=== PATIENT | female | born 1945 | race Caucasian/White ===

== ENCOUNTER → 2017-02-03 | Outpatient (CLI) | payer OTHER | LOC: RAD 01-30 14:25 | DX: Z12.31 Encounter for screening mammogram for malignant neoplasm of breast (principal) ==

== ENCOUNTER → 2017-02-14 | Outpatient (CLI) | payer OTHER | LOC: RAD 16:09 | DX: M47.892 Other spondylosis, cervical region (principal); R07.9 Chest pain, unspecified; R22.2 Localized swelling, mass and lump, trunk ==

== ENCOUNTER → 2017-02-20 | Outpatient (CLI) | payer OTHER | LOC: CAT 09:30 | DX: I25.10 Atherosclerotic heart disease of native coronary artery without angina pectoris (principal); R91.8 Other nonspecific abnormal finding of lung field; N85.9 Noninflammatory disorder of uterus, unspecified ==

== ENCOUNTER → 2017-03-08 | Outpatient (CLI) | payer OTHER | LOC: PET 01:26 | DX: R91.8 Other nonspecific abnormal finding of lung field (principal); R06.02 Shortness of breath ==

== ENCOUNTER → 2017-03-20 | Outpatient (CLI) | payer OTHER ==
[~2017-03-20] VITALS: Ht 157.5 cm; Wt 67.1 kg
[~2017-03-20] MED LIST: ASPIRIN325 PO; FLEXERIL PO; LISINOPRIL20 MG PO; PREMARIN0.3 MG PO; RAYOS2 MG PO; VERAPAMIL E.R240 M1 PO; ZOCOR20 MG PO
--- NOTE | ~2017-03-20 | S ---
[facility] [place] [address] SURGICAL PATH RPT PROCEDURE Name: MANUELA OLSEN [id number]: 03/20/17 Date of : 47 Discharge: Report #: [id number] Path Case #: [id number] PATHOLOGY REPORT COLLECTION DATE: 03/20/2017 RECEIVED DATE: 03/20/2017 SUBMITTING PHYS: Dr. Michael Stuart OTHER PHYS: Dr. Patel Rivas SPECIMEN(S) RECEIVED: A.Right clavicle bone biopsy * * * * * * * * * * * * FINAL DIAGNOSIS: Bone, right clavicle bone lesion, needle core biopsy: - Predominantly cartilage (60%) and the remainder showing thick-walled vessels along with inflammatory cells (please see comment). (IUV:kiya; 03/22/2017) COMMENT: Examination shows reactive cartilage along with adjacent ossification as well as thick-walled vessels with inflammatory cells. The reactive inflammatory process might represent partially sampled nodular fascitis, or hemangioma. There is no evidence of malignancy. Co-review: Dr. Praneeth Trujillo Findings of this case are discussed with Dr. Tahira Stuart at 1:30 p.m. on 03/22/2017. (IUV:kiya; 03/22/2017) PATHOLOGIST: Puja Lamb M.D. REPORT ELECTRONICALLY SIGNED BY: Puja Lamb M.D. DATE/TIME: 03/22/2017 15:58 * * * * * * * * * * * * GROSS PATHOLOGY: The specimen is received in formalin labeled "Manuela Olsen, right clavicle biopsy". Received are multiple needle cores of pale carrasquillo soft tissue mixed of blood coagulum measuring 1.2 x 0.9 x 0.1 cm in aggregate dimensions. The specimen is filtered and entirely submitted in cassette A1. (CAA; 03/21/2017) CLINICAL HISTORY: [facility] [place] [address] SURGICAL PATH RPT PROCEDURE Name: MANUELA OLSEN Room #: REG CLI [facility].#: [id number] Admission: 03/20/17 Date of : 47 Discharge: Report #: [id number] Path Case #: [id number] INITIAL CPT CODE(S): A; 99495 Professional services performed by [facility] at [address] , [place] [address] Technical services performed by [facility] at [address] [place] [address], [facility] [address] [address]. [facility] [address] [place] [address] PHONE: [phone] DIRECTOR: Cr Gonzalez M.D. * * * END OF REPORT * * *
[2017-03-20 09:38] VITALS: BP 137/63
[2017-03-20 10:11] LABS: HEMATOCRIT 41.4 % (37.0-47.0); HEMOGLOBIN 13.9 gm/dL (12.0-15.0); MCH 30.7 pg (26.0-34.0); MCHC 33.5 g/dL (28.0-37.0); MCV 91.8 fL (80.0-100.0); RBC 4.51 mil/uL (4.20-5.00); RDW 14.4 % (10.5-14.5); WBC 12.5 thou/uL (4.0-11.0)
[2017-03-20 10:24] LABS: PROTIME 10.1 Seconds (9.3-11.4)
[2017-03-20 11:10] VITALS: BP 98/50
== END | disposition home or self-care (01) ==
LOC: CAT 07:28
PROVIDERS: Radiology Vascular & Interventional Radiology
DX: M86.8X8 Other osteomyelitis, other site (principal)

== ENCOUNTER → 2017-04-20 | Outpatient (CLI) | payer OTHER ==
[2017-04-20] VITALS (10 sets, daily range): BP systolic 88–133; BP diastolic 43–61
[~2017-04-20] VITALS: Ht 162.6 cm; Wt 65.8 kg
[~2017-04-20] MED LIST changes: +TRAMADOL 50 MG50 MG PO
--- NOTE | ~2017-04-20 | S ---
[facility] [address] [place] [address] SURGICAL PATH RPT PROCEDURE Name: MANUELA OLSEN [facility] [id number] Admission: 04/20/17 Date of : 47 Discharge: Report #: [id number] Path Case #: [id number] PATHOLOGY REPORT COLLECTION DATE: 04/19/2017 RECEIVED DATE: 04/20/2017 SUBMITTING PHYS: Dr. Cornelius Cunningham OTHER PHYS: Dr. Patel Rivas SPECIMEN(S) RECEIVED: A.Right clavicle bx * * * * * * * * * * * * FINAL DIAGNOSIS: Bone, right clavicle, CT-guided needle core biopsy: - MINUTE INTACT FRAGMENT WITH A FOCUS OF METASTATIC ADENOCARCINOMA PRESENT. - Specimen predominantly (99%) comprised of reactive cartilage as well as osseous tissue. COMMENT: Examination shows reactive cartilage, focal ossified bone and inflamed tissue resembling granulation tissue with a few crushed glands. Immunohistochemical stains are performed. (Block A1) AE1/AE3: reactivity present within the tiny focus of crushed atypical cells TTF-1: reactivity present within the tiny focus of crushed atypical cells (numerous detached cells showing reactivity within the aspirated blood) These findings support the presence of metastatic adenocarcinoma in this biopsy tissue. Co-review: Dr. Lidia Nolan Findings are discussed with Ms. Ott, Dr. Brien Cunningham's nurse at 12:30 pm on 04/24/17 . (IUV:mgr; 04/21/2017) PATHOLOGIST: Puja Lamb M.D. REPORT ELECTRONICALLY SIGNED BY: Puja Lamb M.D. DATE/TIME: 04/24/2017 14:01 * * * * * * * * * * * * GROSS PATHOLOGY: The specimen is received in formalin in two containers, labeled "Manuela Olsen, CT biopsy right clavicle" are multiple hemorrhagic cores in one container and a single core in the second container. The single [address] [place] [address] SURGICAL PATH RPT PROCEDURE Name: MANUELA OLSEN Room #: REG [facility].#: [id number] Admission: 04/20/17 Date of : 47 Discharge: Report #: [id number] Path Case #: [id number] core measures 0.7 x 0.2 cm. The multiple cores measure 1.8 x 1.1 x 0.2 cm. Each have a hemorrhagic, carrasquillo-red, friable appearance. The single core is filtered and entirely submitted in cassette A1 while the remaining cores are filtered and entirely submitted in cassette A2. ([facility]; 04/20/2017) CLINICAL HISTORY: 09Not given INITIAL CPT CODE(S): A; 61148, 88935, 80866 Professional services performed by [facility] at [address] , [place] [address] Technical services performed by [facility] at [address] [place] [address], [address], [place] [address]. [facility] [address] [address] PHONE: [phone] DIRECTOR: Cr Gonzalez M.D. * * * END OF REPORT * * *
[2017-04-20 09:20] LABS: HEMATOCRIT 44.1 % (37.0-47.0); HEMOGLOBIN 14.4 gm/dL (12.0-15.0); MCHC 32.6 g/dL (28.0-37.0); RBC 4.79 mil/uL (4.20-5.00); RDW 14.7 % (10.5-14.5); WBC 13.8 thou/uL (4.0-11.0)
[2017-04-20 09:32] LABS: APTT 26.6 Seconds (24.5-32.8); PROTIME 9.7 Seconds (9.3-11.4)
== END | disposition home or self-care (01) ==
LOC: CAT 08:29
PROVIDERS: Radiology Diagnostic Radiology
DX: C79.51 Secondary malignant neoplasm of bone (principal); I10 Essential (primary) hypertension; I73.89 Other specified peripheral vascular diseases; F17.200 Nicotine dependence, unspecified, uncomplicated; Z90.710 Acquired absence of both cervix and uterus; Z88.0 Allergy status to penicillin; Z88.8 Allergy status to other drugs, medicaments and biological substances; Z79.82 Long term (current) use of aspirin; Z79.899 Other long term (current) drug therapy; Z98.890 Other specified postprocedural states

== ENCOUNTER 2017-05-10 05:23 | Day surgery (SDC) | payer OTHER ==
[~2017-05-10] VITALS: Ht 157.5 cm; Wt 66.2 kg
--- NOTE | ~2017-05-10 | P ---
[facility] [place] [address] PROCEDURE REPORT Name: MANUELA CANALES Room #: 150-7 [facility] M.R.#: [id number] Admission: 05/10/17 Attend Phys: Michael Stuart MD Discharge: Date of : 47 Report #: [id number] THIS REPORT FOR: //name// CC: Rommel Vera Allen YAHAIRA Rivas DATE OF SERVICE: 05/10/2017 PROCEDURE: Fiberoptic bronchoscopy with endobronchial ultrasound and endobronchial ultrasound-guided FNA of an 11R and 4L lymph node. INDICATION: History of a lung cancer and mediastinal staging, ASA classification class 2. PROCEDURE NOTATION: After discussing risks, benefits of planned procedure with the patient. She desired to proceed. After obtaining informed consent, she was brought to operating room 1 where she was placed on general endotracheal anesthesia by the anesthesia service. Please see their notes for further details. White light bronchoscope was passed through the endotracheal tube until the distal trachea was found. The endotracheal tube was repositioned to optimal position for endobronchial ultrasound evaluation. The airways were then surveyed. Trachea Mainstem, lobar, segmental and subsegmental bronchi were all explored bilaterally with no significant anatomic variation or significant disease. Some minor calcifications of some of the cartilaginous areas were noted. There was some minor atypical variation to the right upper lobe ____ having a trifurcation, only two significant segmental bronchi were noted. No other significant findings were noted. White light bronchoscope was removed and endobronchial ultrasound was then inserted and mediastinal lymph nodes and hilar lymph nodes were evaluated in usual fashion. Significant findings included a 6 mm 11R lymph node, which was sampled x 7 using 25-gauge needles. Rapid onsite pathology confirmed lymphatic tissue. No significant 10R or 7 lymph nodes were noted. No significant 4R lymph node noted. A 5 mm 4R lymph node was noted and this was sampled with 25-gauge needle x 3. There was a 2 mm 10L lymph node, no significant 11L lymph node ____ there was a 3 mm level 7 lymph node noted. The patient tolerated procedure well. No noted complications, but still being extubated post-procedure at the time of this dictation. Discussed with friend post-procedure. [facility] [address] [place] [address] PROCEDURE REPORT Name: MANUELA CANALES Room #: 150-7 [facility]..#: [id number] Admission: 05/10/17 Attend Phys: Michael Stuart MD Discharge: Date of : 47 Report #: [id number] SUGGESTION: Awaiting pathology. By: 0903 1053 Michael Stuart MD /nt
--- NOTE | ~2017-05-10 | CNG ---
[facility] [place] [address] CYTO-NONGYN REPORT PROCEDURE Name: MANUELA OLSEN Room #: DEP [facility] M..#: [id number] Admission: 05/10/17 Date of : 47 Discharge: 05/10/17 Report #: [id number] Path Case #: [id number] CYTOPATHOLOGY REPORT COLLECTION DATE: 05/10/2017 RECEIVED DATE: 05/10/2017 SUBMITTING PHYS: Dr. Michael Stuart OTHER PHYS: Dr. 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 SPECIMEN(S) RECEIVED: A.EBUS guided Fine needle aspiration, lymph node 11 R Pass 1 B.EBUS guided Fine needle aspiration, lymph node 4 L Pass 1 * * * * * * * * * * * * FINAL DIAGNOSIS: A. Lymph node, 11 R , EBUS guided Fine needle aspiration: - No malignant cells identified. Abundant lymphoid tissue sampled. Normal bronchial epithelial cells and cartilage. B. Tissue designated as lymph node 4 L, EBUS guided Fine needle aspiration: ATYPICAL CELL GROUPS IDENTIFIED CANNOT EXCLUDE MARKEDLY REACTIVE BRONCHIAL EPITHELIAL CELLS. Sheets of bronchial epithelial cells and cartilage present. No lymphoid tissue sampled. COMMENT: The atypical cells groups are in flat sheets; however have a clumped chromatin in a few areas and lack cilia. These are scant in nature and are identified along with the reactive bronchial epithelial cells. There is no lymphoid tissue sampled. The findings may represent either reactive air-dried bronchial epithelial cells or a neoplasm. The scant nature along with air-drying artifact precludes a definitive diagnosis. PATHOLOGIST: Puja Lamb M.D. REPORT ELECTRONICALLY SIGNED BY: Puja Lamb M.D. DATE/TIME: 05/11/2017 12:51 * * * * * * * * * * * * GROSS PATHOLOGY: A. EBUS guided Fine needle aspiration, lymph node 11 R Pass 1: The specimen is labeled "Manuela Olsen" and consists of two H and E slides. Forty-five mL of cloudy carrasquillo fluid in formalin from the needle rinse is also submitted and a formalin fixed cell block was prepared from this material. B. EBUS guided Fine needle aspiration, lymph node 4 L Pass 1: [facility] [address] [place] [address] CYTO-NONGYN REPORT PROCEDURE Name: MANUELA OLSEN Room #: [facility] M.R.#: [id number] Admission: 05/10/17 Date of : 47 Discharge: 05/10/17 Report #: [id number] Path Case #: [id number] specimen is labeled "Manuela Olsen" and consists of two H and E slides. Forty-five mL of clear colorless fluid in formalin from the needle rinse is also submitted and a formalin fixed cell block was prepared from this material. (clt 05.10.2017) IMMEDIATE EVALUATION: A. 11 R Pass 1: Per Dr. Lamb: Lymphoid tissue, bronchial epithelial cells and cartilage. B. 4 L Pass 1: Per Dr. Vadlamani: Atypical cells along with bronchial epithelial cells; no lymphoid tissue. Professional services performed under supervision of [facility] [employer] at [facility] [address], [place] [address]. WHOLESALE ACCOUNT EXECUTIVE(S): ADRIAN Duran([facility]) INITIAL CPT CODE(S): A; 06247, 46157, 48531 B; 52486, 07832, 80327 Professional services performed by [facility] at [place] [address], [place] [address] Technical services performed by [facility] at [address] [place] [address]., [address], [place] [address]. [address], [address] [place] [address] PHONE: [phone] DIRECTOR: Cr Gonzalez M.D. * * * END OF REPORT * * *
[2017-05-10 06:53] LABS: HEMOGLOBIN 14.7 gm/dL (12.0-15.0); MCH 30.5 pg (26.0-34.0); MCHC 33.4 g/dL (28.0-37.0); MCV 91.2 fL (80.0-100.0); RBC 4.82 mil/uL (4.20-5.00); WBC 11.4 thou/uL (4.0-11.0)
[2017-05-10 07:04] LABS: PROTIME 9.9 Seconds (9.3-11.4)
[2017-05-10 08:10] VITALS: BP 117/47
== END 2017-05-10 10:02 | disposition home or self-care (01) ==
LOC: OR 05:23 → TBA 05:28 → PUL 09:33 → OR 10:02 → EDSTATUS 11:16 → OR 11:19
PROVIDERS: Anesthesiology
DX: J98.09 Other diseases of bronchus, not elsewhere classified (principal); I10 Essential (primary) hypertension; E78.5 Hyperlipidemia, unspecified; I73.89 Other specified peripheral vascular diseases; F17.210 Nicotine dependence, cigarettes, uncomplicated; Z87.442 Personal history of urinary calculi; Z90.710 Acquired absence of both cervix and uterus; Z98.890 Other specified postprocedural states; Z79.899 Other long term (current) drug therapy; Z88.8 Allergy status to other drugs, medicaments and biological substances; Z88.0 Allergy status to penicillin; Z79.82 Long term (current) use of aspirin
CPT/HCPCS: 62110; 62900; 70005

== ENCOUNTER → 2017-05-31 | Outpatient (CLI) | payer OTHER ==
[~2017-05-31] VITALS: Ht 157.5 cm; Wt 66.2 kg
[2017-05-31 09:23] VITALS: BP 133/50
[2017-05-31 09:33] LABS: HEMATOCRIT 39.3 % (37.0-47.0); HEMOGLOBIN 13.1 gm/dL (12.0-15.0); MCH 30.1 pg (26.0-34.0); MCHC 33.3 g/dL (28.0-37.0); MCV 90.3 fL (80.0-100.0); RBC 4.36 mil/uL (4.20-5.00); RDW 14.6 % (10.5-14.5); WBC 11.8 thou/uL (4.0-11.0)
[2017-05-31 09:45] LABS: PROTIME 10.1 Seconds (9.3-11.4)
== END | disposition home or self-care (01) ==
LOC: SPEC 08:29 → CAT 14:51 → SPEC 14:53
PROVIDERS: Radiology Diagnostic Radiology
DX: Z45.2 Encounter for adjustment and management of vascular access device (principal); C79.51 Secondary malignant neoplasm of bone; C34.90 Malignant neoplasm of unspecified part of unspecified bronchus or lung; I10 Essential (primary) hypertension; I73.89 Other specified peripheral vascular diseases; E78.5 Hyperlipidemia, unspecified; F17.210 Nicotine dependence, cigarettes, uncomplicated; Z82.49 Family history of ischemic heart disease and other diseases of the circulatory system; Z90.710 Acquired absence of both cervix and uterus; Z98.890 Other specified postprocedural states; Z87.442 Personal history of urinary calculi; Z87.19 Personal history of other diseases of the digestive system; Z79.82 Long term (current) use of aspirin; Z79.899 Other long term (current) drug therapy; Z88.0 Allergy status to penicillin; Z88.8 Allergy status to other drugs, medicaments and biological substances

== ENCOUNTER 2017-11-26 11:26 | Inpatient (IN) | payer OTHER ==
[~2017-11-26] VITALS: Ht 157.5 cm; Wt 64.4 kg
--- NOTE | ~2017-11-26 | EKG ---
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 CLARK : 1945 Requested By: Mack Coronel Order Number: [id number] MD: Vipul Kolb Measurements Intervals [place] Rate: 83 P: 66 VT: 164 QRS: -23 QRSD: 101 T: 94 QT: 365 QTc: 429 Interpretive Statements Sinus rhythm Borderline left axis deviation Anterior infarct, old Nonspecific T abnormalities, lateral leads No previous ECG available for comparison Electronically Signed On 11-26-2017 13:50:14 CDT by Vipul Kolb [email or web address] <ELECTRONICALLY SIGNED> By: Vipul Kolb MD, [facility] 11/26/17 1350 1215 1215 Vipul Kolb MD, FACC /EPI
--- NOTE | ~2017-11-26 | H ---
[facility] [place] [address] HISTORY AND PHYSICAL Name: MANUELA CANALES Room #: 357-P [facility] M.R.#: [id number] Admission: 11/26/17 Attend Phys: Bayron Ruvalcaba MD Discharge: 11/29/17 Date of : 47 Report #: [id number] THIS REPORT FOR: //name// CC: Bayron Rivas REASON FOR ADMISSION: Shortness of breath. HISTORY OF PRESENT ILLNESS: A 71-year-old with past medical history of hypertension, peripheral vascular disease, lung cancer, adenocarcinoma diagnosed back in April 2017. She presented to the hospital complaining of worsening shortness of breath that started 2 days ago. This was associated with dry cough. She sees Dr. Cunningham. This was diagnosed back in April 2017 and it was found to be metastatic to the right clavicle. She received chemotherapy, but she is not aware of her regimen. She is undergoing radiational therapy right now and had about 7 treatments. No previous similar episodes. No hemoptysis. No lower extremity swelling. No fever or chills. On presentation to the Emergency Room, she was found to have influenza positive and was admitted for further evaluation and management because she was with hypoxemia. PAST MEDICAL HISTORY: 1. Hypertension. 2. Hysterectomy. 3. Peripheral vascular disease. 4. Lung cancer. 5. Lung biopsy. 6. Nephrolithiasis. 7. Status post bone biopsy. 8. Hyperlipidemia. MEDICATIONS: 1. Premarin. 2. Lisinopril. 3. Prednisone. 4. Aspirin. 5. Tramadol. 6. Verapamil. ALLERGIES: CLINDAMYCIN. SOCIAL HISTORY: She is an ex-smoker. She smoked for about 30 years. 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 FAMILY HISTORY: Her sister has diabetes mellitus and hypertension. REVIEW OF SYSTEMS: GENERAL: Significant for some weakness. [facility] [address] [place] [address] HISTORY AND PHYSICAL Name: MANUELA CANALES Room #: 357-P [facility].#: [id number] Admission: 11/26/17 Attend Phys: Bayron Ruvalcaba MD Discharge: 11/29/17 Date of : 47 Report #: [id number] CARDIOVASCULAR: No chest pain or palpitation. PULMONARY: As per the history of present illness. GASTROINTESTINAL: No nausea or vomiting. GENITOURINARY: No frequency, no urgency. NEUROLOGIC: No weakness, no numbness. SKIN: No rash or ulcerations. HEMATOLOGICAL: As per the history of present illness. PHYSICAL EXAMINATION: VITAL SIGNS: Pulse rate is 72, blood pressure is 98/36. HEAD AND NECK: No jugular venous distention, no bruit, no thyromegaly. CHEST: Clear to auscultation bilaterally. CARDIOVASCULAR: Regular with no rub. ABDOMEN: Soft, nontender. LOWER EXTREMITIES: No edema. LABORATORY VALUES: White blood cell count 5.1. Blood gas with a pH of 7.4. Chemistry with a blood glucose of 114. IMAGING: CT reviewed, persistent right upper lobe mass. This has increased in the size. No pneumonitis. Rapid influenza test was detected to be positive. ASSESSMENT, IMPRESSION AND PLAN: 1. Influenza. 2. Immune suppressed status. 3. Adenocarcinoma of the lung. 4. Hypertension. 5. Admission. 6. Resume her outpatient medication other than the lisinopril. 7. Gentle hydration. 8. Tamiflu for her influenza. 9. Deep venous thrombosis and pulmonary embolism prophylaxis. 10. Inhaler therapy. 11. Consult her oncologist tomorrow. 12. We will continue to follow. <ELECTRONICALLY SIGNED> By: Bayron Ruvalcaba MD 12/04/17 0848 1458 1522 Bayron Ruvalcaba MD /nt
--- NOTE | ~2017-11-26 | HC ---
[facility] [place] [address] CONSULTATION Name: MANUELA CANALES Room #: 357-P [facility] M.R.#: [id number] Admission: 11/26/17 Attend Phys: Bayron Ruvalcaba MD Discharge: 11/29/17 Date of : 47 Report #: [id number] THIS REPORT FOR: //name// CC: Bayron Rivas HISTORY OF PRESENT ILLNESS: This is a patient of Dr. Cunningham who called and was referred to the Emergency Room with complaints of worsening shortness of breath. She has recently been receiving pembrolizumab with Alimta as systemic therapy for her stage IV adenocarcinoma of the lung as directed by Dr. Cunningham. She was felt to have an area oligometastatic disease involving the right clavicle and began radiation therapy by Dr. Taj Hyde at the [facility] 2 weeks ago and was scheduled to complete those treatments this week. She states that this area is less painful since beginning radiation therapy. MEDICATIONS: As listed on the MFR. ALLERGIES: CLINDAMYCIN. 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 FAMILY HISTORY: Positive for diabetes and hypertension. PAST MEDICAL HISTORY: In addition to her lung cancer is positive for hypertension, prior hysterectomy, peripheral vascular disease, nephrolithiasis, and hyperlipidemia. REVIEW OF SYSTEMS: Negative for any recent hemoptysis. She has not had any shaking chills or fevers. She denies any purulent sputum production. She denies any suspicious palpable masses or pain. Remaining system review is positive for easy fatigue in addition to her shortness of breath. PHYSICAL EXAMINATION: GENERAL: Shows her to be alert. VITAL SIGNS: Currently blood pressure of 100/50. HEENT: Shows by nasal cannula. NECK: Supple. CHEST: Clear. She has radiation tattoo involving the area for the right clavicle. CARDIOVASCULAR: Normal S1, S2. ABDOMEN: No organomegaly or mass. NEUROLOGIC: No focal localizing signs. PSYCHIATRIC: Not agitated or confused. SKIN: Shows normal turgor. LYMPHATICS: Reveal a palpable supraclavicular or axillary adenopathy. [facility] [address] [place] [address] CONSULTATION Name: MANUELA CANALES Room #: 357-P [facility].#: [id number] Admission: 11/26/17 Attend Phys: Bayron Ruvalcaba MD Discharge: 11/29/17 Date of : 47 Report #: [id number] HOSPITAL COURSE: Laboratory studies are reviewed in addition to her recent scan which shows her dominant right upper lobe mass to be slightly increased in size. ASSESSMENT: Stage IV adenocarcinoma of the lung with current radiation therapy to painful bone metastasis. PLAN: Dr. Hyde has been notified that she was admitted to the hospital and will reschedule her subsequent radiation therapy. She is already receiving pembro and Alimta through Dr. Cunningham who is currently on vacation and will be notified of her hospitalization and schedule followup upon return for what I presume will need to be a change in her current regimen. Thanks for notifying us of her hospitalization and allowing us to participate in her care. <ELECTRONICALLY SIGNED> By: Rosemarie Gross MD 12/01/17 0906 1628 1809 Rosemarie Gross MD /nt
[2017-11-26 11:44] VITALS: BP 110/47
[2017-11-26] MEDS ORDERED: FOLIC ACID1 MG PO (12:04)
[2017-11-26] MEDS ORDERED: ONDANSETRON HCL4 M2 PO (12:05)
[2017-11-26] MEDS ORDERED: TYLENOL325 MG PO (12:08)
[2017-11-26] MEDS ORDERED: DECADRON4 MG PO (12:09)
[2017-11-26 12:21] LABS: BE(vivo) 0.8 mmol/L (-2 to +3); HCO3 24.3 mmol/L (22.0-26.0); PCO2 35.2 mmHg (35.0-45.0); PO2 76.2 mmHg (80.0-100.0); pH 7.457 (7.360-7.450)
[2017-11-26 13:25] LABS: ABSOLUTE NEUTROPHILS 4.2 thou/uL (1.4-8.2); BASOPHILS 0.5 % (0.0-2.0); EOSINOPHILS 0.2 % (0.0-3.0); HEMATOCRIT 35.8 % (37.0-47.0); HEMOGLOBIN 11.9 gm/dL (12.0-15.0); LYMPHOCYTES 5.6 % (24.0-44.0); MCH 32.1 pg (26.0-34.0); MCHC 33.2 g/dL (28.0-37.0); MCV 96.5 fL (80.0-100.0); MONOCYTES 11.5 % (1.0-8.0); PLATELET COUNT 216 thou/uL (150-400); POLYS 82.2 % (36.0-66.0); RBC 3.71 mil/uL (4.20-5.00); RDW 15.7 % (10.5-14.5); WBC 5.1 thou/uL (4.0-11.0)
[2017-11-26 13:30] LABS: ANION GAP 9 mmol/L (7-16); BUN 13 mg/dL (7-18); CALCIUM 9.2 mg/dL (8.5-10.1); CHLORIDE 103 mmol/L (98-107); CO2 28 mmol/L (21-32); CREATININE 0.6 mg/dL (0.6-1.0); GLUCOSE 114 mg/dL (74-106); POTASSIUM 3.6 mmol/L (3.5-5.1); SODIUM 140 mmol/L (136-145)
[2017-11-26 13:40] LABS: TROPONIN-I < 0.04 ng/mL (<0.06)
[2017-11-26 16:37] VITALS: BP 92/45
[2017-11-26 17:54] VITALS: BP 103/44
[2017-11-26 19:59] VITALS: BP 106/43
[2017-11-27 03:42] VITALS: BP 106/38
[2017-11-27 05:55] LABS: HEMATOCRIT 32.7 % (37.0-47.0); HEMOGLOBIN 10.9 gm/dL (12.0-15.0); MCH 32.5 pg (26.0-34.0); MCHC 33.3 g/dL (28.0-37.0); MCV 97.5 fL (80.0-100.0); RBC 3.35 mil/uL (4.20-5.00); RDW 15.3 % (10.5-14.5); WBC 3.7 thou/uL (4.0-11.0)
[2017-11-27 06:12] LABS: ALBUMIN 2.6 g/dL (3.4-5.0); CALCIUM 8.6 mg/dL (8.5-10.1); CREATININE 0.5 mg/dL (0.6-1.0); POTASSIUM 3.7 mmol/L (3.5-5.1); TOTAL BILIRUBIN 0.2 mg/dL (<0.1-1.0)
[2017-11-27 08:00] VITALS: BP 114/55
[2017-11-27 11:20] VITALS: BP 131/51
[2017-11-27 15:36] VITALS: BP 113/50
[2017-11-27 20:05] VITALS: BP 143/66
[2017-11-28 04:35] VITALS: BP 148/56
[2017-11-28 06:47] LABS: HEMATOCRIT 32.3 % (37.0-47.0); HEMOGLOBIN 10.9 gm/dL (12.0-15.0); MCH 32.3 pg (26.0-34.0); MCHC 33.8 g/dL (28.0-37.0); MCV 95.6 fL (80.0-100.0); PLATELET COUNT 144 thou/uL (150-400); RBC 3.38 mil/uL (4.20-5.00); RDW 15.3 % (10.5-14.5); WBC 3.8 thou/uL (4.0-11.0)
[2017-11-28 06:58] LABS: CALCIUM 8.5 mg/dL (8.5-10.1); CREATININE 0.6 mg/dL (0.6-1.0); POTASSIUM 3.3 mmol/L (3.5-5.1)
[2017-11-28 07:27] LABS: ABSOLUTE NEUTROPHILS 2.4 thou/uL (1.4-8.2)
[2017-11-28 07:57] VITALS: BP 122/61
[2017-11-28 11:10] VITALS: BP 123/52
[2017-11-28 14:42] VITALS: BP 153/58
[2017-11-28 19:30] VITALS: BP 148/71
[2017-11-29 04:10] VITALS: BP 143/76
[2017-11-29 07:50] VITALS: BP 160/78
[2017-11-29] MEDS ORDERED: LEVAQUIN 500 M500 M2 PO (09:08)
[2017-11-29] MEDS ORDERED: OSELB75 PO (09:09)
[2017-11-29] MEDS ORDERED: PREDNISONE 5 MG5 M1 PO (09:09)
[2017-11-29 11:02] VITALS: BP 145/64
[2017-11-29 14:37] VITALS: BP 145/64
[2017-11-29 15:21] VITALS: BP 140/59
== END 2017-11-29 17:28 | disposition home or self-care (01) | DRG 193 ==
LOC: ER 11:26 → EROBS 14:37 → 3W 14:37
PROVIDERS: Hospitalist; Physician Assistant
DX: J10.00 Influenza due to other identified influenza virus with unspecified type of pneumonia (principal); J96.00 Acute respiratory failure, unspecified whether with hypoxia or hypercapnia; C34.90 Malignant neoplasm of unspecified part of unspecified bronchus or lung; C79.51 Secondary malignant neoplasm of bone; I10 Essential (primary) hypertension; I73.9 Peripheral vascular disease, unspecified; E03.9 Hypothyroidism, unspecified; E78.5 Hyperlipidemia, unspecified; F17.210 Nicotine dependence, cigarettes, uncomplicated; I95.9 Hypotension, unspecified; T46.4X5A Adverse effect of angiotensin-converting-enzyme inhibitors, initial encounter; Y92.89 Other specified places as the place of occurrence of the external cause; Z85.118 Personal history of other malignant neoplasm of bronchus and lung; Z92.21 Personal history of antineoplastic chemotherapy; Z92.3 Personal history of irradiation; Z87.442 Personal history of urinary calculi; Z90.710 Acquired absence of both cervix and uterus; Z95.820 Peripheral vascular angioplasty status with implants and grafts; Z79.82 Long term (current) use of aspirin; Z79.899 Other long term (current) drug therapy; Z88.1 Allergy status to other antibiotic agents; Z88.8 Allergy status to other drugs, medicaments and biological substances; Z83.3 Family history of diabetes mellitus; Z82.49 Family history of ischemic heart disease and other diseases of the circulatory system
CPT/HCPCS: 10879

== ENCOUNTER → 2018-02-27 | Outpatient (CLI) | payer OTHER ==
[~2018-02-27] MED LIST changes: +DECADRON4 MG PO; +FOLIC ACID1 MG PO; +LEVAQUIN 500 M500 M2 PO; +ONDANSETRON HCL4 M2 PO; +OSELB75 PO; +PREDNISONE 5 MG5 M1 PO; +TYLENOL325 MG PO
== END ==
LOC: RAD 03:15
DX: Z12.31 Encounter for screening mammogram for malignant neoplasm of breast (principal)

== ENCOUNTER 2018-11-28 14:53 | Inpatient (IN) | payer OTHER ==
[~2018-11-28] VITALS: Ht 167.6 cm; Wt 69.9 kg
[2018-11-28 14:55] VITALS: BP 108/89
[2018-11-28 16:18] LABS: ABSOLUTE NEUTROPHILS 10.3 thou/uL (1.4-8.2); BASOPHILS 0.2 % (0.0-2.0); EOSINOPHILS 0.5 % (0.0-3.0); HEMATOCRIT 40.9 % (37.0-47.0); HEMOGLOBIN 13.7 gm/dL (12.0-15.0); LYMPHOCYTES 1.7 % (24.0-44.0); MCHC 33.6 g/dL (28.0-37.0); MCV 95.4 fL (80.0-100.0); MONOCYTES 5.6 % (1.0-8.0); PLATELET COUNT 126 thou/uL (150-400); RBC 4.29 mil/uL (4.20-5.00); RDW 16.6 % (10.5-14.5); WBC 11.2 thou/uL (4.0-11.0)
[2018-11-28 16:25] LABS: CREATININE 1.2 mg/dL (0.6-1.0); POTASSIUM 4.6 mmol/L (3.5-5.1)
[2018-11-28 16:34] LABS: TROPONIN-I 0.2 ng/mL (<0.06)
--- NOTE | 2018-11-28 17:21 | EKG ---
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 : 1945 Requested By: Brian Avalos Order Number: [id number] MD: Vipul Kolb Measurements Intervals [place] Rate: 127 P: 86 MA: 163 QRS: -21 QRSD: 74 T: 97 QT: 291 QTc: 424 Interpretive Statements Sinus tachycardia Borderline left axis deviation Anterior infarct, old Nonspecific repol abnormality, lateral leads Compared to ECG 11/26/2017 12:15:46 heart rate has increased Electronically Signed On 11-28-2018 17:21:08 CDT by Vipul Kolb [email or web address] ��������������������������������������������� <ELECTRONICALLY SIGNED> ���������������������������������������� By: Vipul Kolb MD, [facility] ��������������������������������������������� 11/28/18 1721 1508 1508 Vipul Kolb MD, FACC /EPI
[2018-11-28 18:00] VITALS: BP 100/73
--- NOTE | 2018-11-28 18:40 | NUR ---
PT BROUGHT BACK BY CARDIOLOGY RN, STATES POWER PORT NOT ABLE TO DO CTA. CALLED INPATIENT NURSE REPORT EXPLAINED WHEN ARRIVES TO FLOOR IV TEAM NEEDS TO FIND ANOTHER ACCESS ACCEPTABLE FOR CTA
[2018-11-28 18:45] VITALS: BP 100/73
[2018-11-28 20:31] VITALS: BP 99/64
[2018-11-28] MEDS ORDERED: NORCO 7.5-3251 EACH PO (22:43)
[2018-11-28] MEDS ORDERED: ZANAFLEX2 MG PO (22:49)
[2018-11-28] MEDS ORDERED: SPIRONOLACTONE25 M1 PO (22:50)
[2018-11-28] MEDS ORDERED: ASPIR 8181 MG PO (22:51)
--- NOTE | 2018-11-28 23:20 | NUR ---
VASCULAR ACCESS CONSULTED TO ASSESS THIS PT'S PORT. LT CHEST PORT WAS ACCESSED IN THE ER WITH MALFUNCTIONING DURING CT SCAN. CXR REVEALS THE TIP OF THE LINE IN THE UPPER SVC, HAS BEED ACCESSED WITH A POWER NEEDLE, AND HAS A BLOOD RETURN WITH SOME MANIPULATION WITH PT REPOSITIONING. LINE FLUSHES EASILY. CT STICKER PLACED ON DSG TO ID TYPE OF NEEDLE USED.
--- NOTE | 2018-11-29 03:09 | NUR ---
PT ADMIT FROM ER. ARRIVED ON UNIT ABOUT 1905 YESTERDAY IN COMPANY OF FAMILY. PT AOX4. REPORTS PAIN IN HER LOWER BACK RATED 4/10. PATIENT RECEIVED [facility] IN ER AND DID NOT REQUEST ANYTHING FOR HER PAIN. VITAL SIGNS STABLE. CT SHOWED PEs. PT ON LEVONOX. HOME MEDS RECONCILLED. NO HOME MEDS RESTARTED YET. PT GETS SOA WITH ACTIVITIES C/O TIREDNESS. OTHER ASSESSMENTS DOCUMENTED. WILL CONTINUE TO FOLLOW PLAN OF CARE.
[2018-11-29 04:35] VITALS: BP 117/62
[2018-11-29 05:33] LABS: BASOPHILS 0.5 % (0.0-2.0); EOSINOPHILS 0.4 % (0.0-3.0); HEMATOCRIT 38.9 % (37.0-47.0); HEMOGLOBIN 13.1 gm/dL (12.0-15.0); LYMPHOCYTES 6.2 % (24.0-44.0); MCH 31.9 pg (26.0-34.0); MCHC 33.6 g/dL (28.0-37.0); MONOCYTES 9.3 % (1.0-8.0); PLATELET COUNT 117 thou/uL (150-400); POLYS 83.6 % (36.0-66.0); RDW 16.6 % (10.5-14.5); WBC 8.4 thou/uL (4.0-11.0)
[2018-11-29 05:40] LABS: CALCIUM 8.2 mg/dL (8.5-10.1); MAGNESIUM 2.1 mg/dL (1.8-2.4); POTASSIUM 4.8 mmol/L (3.5-5.1)
[2018-11-29 07:41] VITALS: BP 130/70
--- NOTE | 2018-11-29 10:39 | 2DMMODE ---
[facility] [address] [place] [address] 2 D/M-MODE ECHOCARDIOGRAM Name: MANUELA CANALES Room #: 205-P [facility] IN ..#: [id number] ������������� Admission: 11/28/18 ������������� Attend Phys: Evangelista Bowers, Discharge: ��� ������������� ��� Date of : 47 Date of Service: 11/29/18 1039 �� Report #: [id number] �������� ��������������������������������������������[id number] THIS REPORT FOR: //name// APPROVED REPORT Study performed: 11/29/2018 09:36:11 EXAM: Comprehensive 2D, Doppler, and color-flow Echocardiogram Patient Location: Bedside Room #: [facility] Status: routine BSA: 1.75 HR: 99 bpm BP: 117/62 mmHg Rhythm: NSR Other Information Study Quality: Adequate Indications COPD Pulmonary Embolism Dyspnea CAD Hypertension/HDD 2D Dimensions RVDd: 41.11 mm IVSd: 10.91 (7-11mm) LVOT Diam: 19.31 (18-24mm) LVDd: 40.06 mm PWd: 11.13 (7-11mm) Ascending Ao: 27.05 (22-36mm) LVDs: 28.97 (25-40mm) Aortic Root: 28.14 mm IVC: 25.00 mm Volumes Left Atrial Volume (Systole) Single Plane 4CH: 19.54 mL Single Plane 2CH: 34.64 mL LA ESV Index: 18.00 mL/m2 Aortic Valve AoV Peak Shiv.: 1.45 m/s AO Peak Gr.: 8.39 mmHg LVOT Max P.46 mmHg LVOT Max V: 0.78 m/s NICK Vmax: 1.58 cm2 [facility] [address] [place] [address] 2 D/M-MODE ECHOCARDIOGRAM Name: MANUELA CANALES Room #: 205-P [facility].#: [id number] ������������� Admission: 11/28/18 ������������� Attend Phys: Evangelista Bowers, Discharge: ��� ������������� ��� Date of : 47 Date of Service: 11/29/18 1039 �� Report #: [id number] �������� ��������������������������������������������[id number] Mitral Valve E/A Ratio: 0.5 MV Decel. Time: 420.30 ms MV E Max Shiv.: 0.42 m/s MV A Shiv.: 0.79 m/s MV PHT: 121.89 ms IVRT: 170.70 ms Pulmonary Valve PV Peak Shiv.: 0.93 m/s PV Peak Gr.: 3.45 mmHg Pulmonary Vein P Vein S: 0.47 m/s P Vein A: 0.27 m/s P Vein D: 0.26 m/s P Vein A Dur.: 106.1 msec P Vein S/D Ratio: 1.81 Tricuspid Valve TR Peak Shiv.: 3.27 m/s TR Peak Gr.: 42.82 mmHg PA Pressure: 58.00 mmHg Left Ventricle The left ventricle is normal size. There is mild global hypokinesis of the left ventricle. There is normal left ventricular wall thickness. Left ventricular systolic function is moderate to severely decreased. LVEF is 35%. Prominent discordant septal motion Mild diastolic dysfunction is present (impaired relaxation pattern). Right Ventricle Right ventricle is at the upper limits of normal. Right ventricle is mildly hypokinetic. Atria The left atrium size is normal. Right atrium is at the upper limits of normal. Aortic Valve The aortic valve is normal in structure. No aortic regurgitation is present. There is no aortic valvular stenosis. Mitral Valve The mitral valve is normal in structure. There is no mitral valve regurgitation noted. No evidence of mitral valve stenosis. Tricuspid Valve [address] [address] 2 D/M-MODE ECHOCARDIOGRAM Name: MANUELA CANALES Room #: 205-P [facility] IN .R.#: [id number] ������������� Admission: 11/28/18 ������������� Attend Phys: Evangelista Bowers, Discharge: ��� ������������� ��� Date of : 47 Date of Service: 11/29/18 1039 �� Report #: [id number] �������� ��������������������������������������������[id number] The tricuspid valve is normal in structure. There is mild tricuspid regurgitation. Estimated PAP 58 mmHg. There is moderate pulmonary hypertension. Pulmonic Valve The pulmonary valve is normal in structure. There is no pulmonic valvular regurgitation. Great Vessels The aortic root is normal in size. The inferior vena cava is dilated with no inspiratory collapse. Pericardium Trace pericardial effusion. <Conclusion> Left ventricular systolic function is moderate to severely decreased. There is global hypokinesis of the left ventricle. LVEF is 35%. Prominent discordant septal motion. Mild diastolic dysfunction is present The aortic valve is normal in structure. No aortic regurgitation or stenosis. The mitral valve is normal in structure. No mitral valve regurgitation. There is mild tricuspid regurgitation. Estimated pulmonary artery pressure of 58 mmHg. Trace pericardial effusion. ��������������������������������������������� <ELECTRONICALLY SIGNED> ���������������������������������������� By: Vipul Kolb MD, FACC ��������������������������������������������� 11/29/18 1039 1039 1039 Vipul Kolb MD, FACC /INF
[2018-11-29 11:30] VITALS: BP 133/56
[2018-11-29 16:25] VITALS: BP 113/74
--- NOTE | 2018-11-29 19:18 | NUR ---
ASSUMED CARE OF PATIENT AT 0700. PATIENT IS A&O X 4. ASSESSMENTS CHARTED. PATIENT UNDERWENT AN ECHO TODAY AND US VENOUS JIMENA LE. PATIENT'S SCD'S WERE REMOVED FROM THE BED DUE TO THE RESULTS OF THE US. PATIENT HAD MULTIPLE VISITORS THROUGHOUT THE DAY. SHE IS RESTING IN HER BED WITH HER CALL LIGHT IN HER LAP. SHE IS VERY TIRED AND EYES ARE VISIBLY RED. SHE STATED THAT SHE HAD LITTLE APPETITE TODAY AND I REITERATED THAT SHE IS ON A REGULAR DIET AND MORE THAN WELCOME TO ORDER FROM THE ALTERNATIVE MENU AND HAVE FAMILY BRING IN HEALTHY ALTERNATIVES. PATIENT COMPLAINS OF LOWER BACK PAIN AND GIVEN HYDROCODNE WHICH ALLEVIATED HER PAIN. PATIENT TO CONTINUE WITH POC.
[2018-11-29 20:15] VITALS: BP 129/78
[2018-11-30 04:45] VITALS: BP 140/70
--- NOTE | 2018-11-30 07:28 | NUR ---
ASSESSMENTS CHARTED. SON AT BEDSIDE AT START OF SHIFT. PATIENT HAD PAIN OF 4/10 IN LOWER BACK, DID NOT WANT ANY PAIN MEDS. WANTED SLEEPING PILL AT BEDTIME. ABLE TO SLEEP SEVERAL HOURS. WOKE UP AT 0200 C/O PAIN IN LEFT SIDE UNDER BREAST AND RIBS, RADIATING UP TO ARM AND DOWN. GAVE PAIN MED AND ICE PACK. DID EKG, WHICH DID NOT SHOW ANYTHING NEW. PAIN WAS NOT RELIEVED RECEIVED ORDER FOR MORPHINE. THAT TOO DID NOT HELP WITH THE PAIN. SON BACK AT BEDSIDE THIS MORNING. PT PRACTICING BREATHING EXERCISES. PLACED ON 3 LITERS OXYGEN FOR COMFORT.
[2018-11-30 08:20] VITALS: BP 133/78
--- NOTE | 2018-11-30 08:49 | EKG ---
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 : 1945 Requested By: Gonzalez Cole Order Number: [id number] MD: Case López Measurements Intervals [place] Rate: 89 P: 80 OR: 153 QRS: -22 QRSD: 77 T: 117 QT: 358 QTc: 436 Interpretive Statements Sinus rhythm Anterior infarct, old Compared to ECG 11/28/2018 15:08:20 Sinus tachycardia no longer present Myocardial infarct finding still present Electronically Signed On 11-30-2018 8:48:48 CDT by Case López [email or web address] ��������������������������������������������� <ELECTRONICALLY SIGNED> ���������������������������������������� By: Case López MD ��������������������������������������������� 11/30/18 0848 7 7 Case López MD /ANDREAS
--- NOTE | 2018-11-30 08:54 | EKG ---
[place] [address] [address] [facility] [place] [address] ELECTROCARDIOGRAM REPORT Name: MANUELA CANALES Room #: 205-P ADM IN M.R.#: [id number] ������������������ Admission: 11/28/18 ������������������ Attend Phys: Evangelista Bowers MD Discharge: ������������������ Date of : 47 Report #: [id number] ����������������������������������������������������������������� [id number] THIS REPORT FOR: //name// [facility] Test Date: 2018-11-30 Test Time: 08:00:36 Pat Name: MANUELA CANALES Department: Room: 205 P Gender: F Social Work Therapist: MELLY : 1945 Requested By: Renata Robertson Order Number: [id number] MD: Case López Measurements Intervals [place] Rate: 101 P: 82 MO: 155 QRS: -20 QRSD: 77 T: 120 QT: 325 QTc: 422 Interpretive Statements Sinus tachycardia LVH with secondary repolarization abnormality Probable inferior infarct, recent Anterior infarct, old Compared to ECG 11/28/2018 15:08:20 Left ventricular hypertrophy now present Myocardial infarct finding still present Electronically Signed On 11-30-2018 8:54:00 CDT by Case López [email or web address] ��������������������������������������������� <ELECTRONICALLY SIGNED> ���������������������������������������� By: Case López MD ��������������������������������������������� 11/[birth year]/1854 9 9 Case López MD /ANDREAS
--- NOTE | 2018-11-30 10:38 | NUR ---
ASSUMED CARE OF PT 0700. PT EXPERIENCING L SIDED PAIN THAT IS NOW RESOLVING WITH PAIN MEDICATION PER EMAR AND POSITION CHANGES. VSS. PT IS RESTING IN BED WITH CALL LIGHT IN REACH. WILL CONTINUE TO MONITOR.
[2018-11-30 11:46] VITALS: BP 103/68
[2018-11-30 16:00] VITALS: BP 121/51
[2018-11-30 19:55] VITALS: BP 109/58
--- NOTE | 2018-12-01 03:32 | NUR ---
ASSESSMENTS CHARTED. PATIENTS PAIN IS MUCH BETTER CONTROLLED AT START OF SHIFT THAN AT THE END OF THE PREVIOUS SHIFT. PT HAS SEVERAL MEDS AVAILABLE TO HELP CONTROL HER PAIN SYMPTOMS. PLAN OF CARE IS TO CONTINUE ANTIBIOTIC TREATMENT FOR PNEUMONIA AND PAIN CONTROL FOR EMBOLI.
[2018-12-01 03:36] VITALS: BP 106/55
[2018-12-01 07:30] VITALS: BP 115/64
[2018-12-01 12:00] VITALS: BP 107/62
[2018-12-01 16:19] VITALS: BP 106/57
--- NOTE | 2018-12-01 18:37 | NUR ---
ASSUMED CARE OF PATIENT AT 0700. PATIENT IS A&O X 4. ASSESSMENTS CHARTED. PATIENT COMPLAINS OF LEFT SIDED NONCARDIAC CHEST PAIN WHICH WAS TREATED WITH OXYCODONE. PATIENT SAT UP IN THE CHAIR FOR PART OF THE DAY AND WENT ON A WALK WITH RT AND MAINTAINED O2 SAT ABOVE 95% ON ROOM AIR. PATIENT HAD MULTIPLE FAMILY MEMBERS AT THE BEDSIDE TODAY. SHE IS ANXIOUS TO GO HOME TODAY. CONTINUE WITH POC.
--- NOTE | 2018-12-01 19:37 | HC ---
[facility] [place] [address] CONSULTATION Name: MANUELA CANALES Room #: 205-P [facility] IN M.R.#: [id number] Admission: 11/28/18 ������������������ Attend Phys: Evangelista Bowers MD Discharge: ������������������ Date of : 47 Report #: [id number] THIS REPORT FOR: //name// CC: DAISHA HENDRIX REASON FOR CONSULTATION: History of lung cancer and recent pulmonary emboli. 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 She began chemotherapy with carboplatin, pembrolizumab, pemetrexed in late 05/2017. After 4 cycles had had regression and was continued on pembrolizumab, pemetrexed as maintenance therapy. She had done well, though she had occasional areas that needed to be treated such as the right clavicle. Unfortunately, in 06/2018, she had additional progression in both the right clavicle and L1. 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 On steroids, this has improved and she has been on 10 mg daily since last week. Recently within about 3 weeks she completed her radiation therapy to the left sacral ala, hip area as well as the right clavicle once again. The patient had a PET scan this past Monday, 4 days ago. I do not have access to that. We will fax a copy to the chart and also call the patient. She developed shortness of air in the next day or two, was seen yesterday and her CAT scan at [place] has bilateral large pulmonary emboli. She denies fevers, chills, new arm or leg swelling. Has had some mild constipation. Does have occasional very little small bits of pink color, almost blood in her stool if she strains very hard, but no overt bleeding. No unusual epistaxis. Appetite has not been so good lately. Rest of the family has been healthy. PAST MEDICAL HISTORY: Notable for the history of the non-small cell lung cancer stage 4 with recent localized progression. Also, history of hypertension, hyperlipidemia, the recent pulmonary emboli which are large. Also, history of polymyalgia rheumatica in the past, not currently receiving therapy. Also ____ in both upper eyelids, cataract removal in the past. SOCIAL HISTORY: Retired, lives in the [place] area, has a daughter that lives up I think in [place]. CURRENT MEDICATIONS: In the hospital include ipratropium and albuterol 3 mL q. 4 respiratory therapy, hydrocodone 1 tab q. 6 p.r.n., sliding scale insulin, Lovenox 60 b.i.d., MiraLax daily, Tylenol p.r.n., Zofran as needed. We will [facility] [address] [place] [address] CONSULTATION Name: MANUELA CANALES Room #: 205-P ADM IN M.R.#: [id number] Admission: 11/28/18 ������������������ Attend Phys: Evangelista Bowers MD Discharge: ������������������ Date of : 47 Report #: [id number] restart her prednisone. PHYSICAL EXAMINATION: GENERAL: The patient appears her stated age. VITAL SIGNS: Height is 5 feet 6 inches, which is 167.6 cm. Weight is 130 pounds on one measure 149 on another, will need clarification. Blood pressure currently 117/62 with O2 sat of 95%, respirations 20, pulse 87, was 131-112 yesterday when she was admitted, afebrile at 97.6. MOOD: She is alert, pleasant, slightly anxious mood. NEUROLOGIC: Face is symmetrical, moving all extremities. Speech and thought pattern appear to be normal. LYMPHATICS: No enlarged lymph nodes in the supraclavicular or cervical region, right clavicle little reddened from past radiation therapy. LUNGS: Have some slight crackles in the bases, very minimal. No wheezing audible. ABDOMEN: Soft, no masses may be mildly tender, but it may be from constipation. EXTREMITIES: Without clubbing or cyanosis. No definite edema. LABORATORY DATA: This admit shows a BUN of 26, creatinine of 1 which is down from 1.3 in the office. Calcium 9. WBC is 8.4, hemoglobin 13.1, MCV 95, RDW 16.6, platelets 117, in 2018 they were 144-181. X-ray from yesterday, the CAT and PE protocol. This was compared to 11/26/2017, shows large bilateral pulmonary emboli with embolus in the left main pulmonary artery and multiple emboli in the secondary pulmonary arteries. There is also prominence of the main pulmonary artery concerning for pulmonary arterial hypertension, right upper lobe mass measured 2.9 x 2.7, previously 3 x 2.3. Note that exam was limited because of difficulties with PowerPort and administration of IV contrast. ASSESSMENT AND PLAN: 1. Bilateral pulmonary emboli. We will make arrangements for ultrasound of legs. Agree with Lovenox, could consider switching to Xarelto standard dose. 2. 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 Will continue prednisone 10. 3. Stage 4 non-small cell lung cancer, had progressed, recent radiation therapy to right clavicle, left SI joint. We will obtain PET scan from office 4. History of hypertension per others. 5. Hyperlipidemia per others. 6. Polymyalgia rheumatica, not recently needing therapy. 7. History of peripheral artery disease, peripheral vascular disease. Defer to others. We will follow. ��������������������������������������������� <ELECTRONICALLY SIGNED> ���������������������������������������� By: Cornelius Cunningham MD ��������������������������������������������� 12/01/181936 0906 53 Cornelius Cunningham MD /nt
[2018-12-01 20:15] VITALS: BP 112/55
[2018-12-02 04:15] VITALS: BP 111/59
--- NOTE | 2018-12-02 05:45 | NUR ---
ASSUME CARE 1900. PT/VITALS STABLE. INTERMITTENT BACK PAIN NOTED. PAIN MEDS FOR RELIEF. UP STB ASSIST TO BATHROOM. TOLERATING ACTIVIT WELL. 2LNC FOR COMFORT. ASSESSMENT CHARTED. PROGRESSING WELL WITH POC. PLAN IS POSSIBLE DISCHARGE TODAY. SR ON MONITOR/ADEQUATE REST NOTED. WILL CONTINUE TO MONITOR AND FOLLOW WITH POC
[2018-12-02 07:42] VITALS: BP 106/47
[2018-12-02] MEDS ORDERED: COREG6.25 MG PO (09:54)
[2018-12-02] MEDS ORDERED: COZAAR 25 MG TA25 MG PO (09:55)
[2018-12-02] MEDS ORDERED: XARELTO15 MG PO (10:52)
[2018-12-02] MEDS ORDERED: XARELTO20 MG PO (10:52)
[2018-12-02 11:12] VITALS: BP 106/47
--- NOTE | 2018-12-02 17:27 | NUR ---
ASSUMED CARE OF PATIENT AT 0700. PATIENT IS A&O X 4. ASSESSMENT CHARTED. COOPER IS RESTING COMFORTABLY IN BED. SHE STATES THAT SHE FEELS MUCH BETTER THAN SHE DID WHEN SHE ARRIVED. DISCHARGE ORDERED BY DR. AVILES. DISCHARGE PAPERWORK REVIEWED. TARCE DEACCESSED. TELE D/C. PATIENT DRIVEN HOME BY HER SON.
== END 2018-12-02 12:54 | disposition home or self-care (01) | DRG 176 ==
LOC: ER 14:53 → 2N 17:36 → EROBS 17:36 → 2N 18:45
PROVIDERS: Emergency Medicine; Nurse Practitioner; ADMIT Internal Medicine
DX: I26.99 Other pulmonary embolism without acute cor pulmonale (principal); N17.9 Acute kidney failure, unspecified; I82.431 Acute embolism and thrombosis of right popliteal vein; E78.5 Hyperlipidemia, unspecified; I73.9 Peripheral vascular disease, unspecified; N18.9 Chronic kidney disease, unspecified; I12.9 Hypertensive chronic kidney disease with stage 1 through stage 4 chronic kidney disease, or unspecified chronic kidney disease; F41.9 Anxiety disorder, unspecified; R73.9 Hyperglycemia, unspecified; M35.3 Polymyalgia rheumatica; J44.9 Chronic obstructive pulmonary disease, unspecified; M81.0 Age-related osteoporosis without current pathological fracture; I25.10 Atherosclerotic heart disease of native coronary artery without angina pectoris; F17.210 Nicotine dependence, cigarettes, uncomplicated; Z90.710 Acquired absence of both cervix and uterus; Z95.820 Peripheral vascular angioplasty status with implants and grafts; Z85.118 Personal history of other malignant neoplasm of bronchus and lung; Z92.21 Personal history of antineoplastic chemotherapy; Z92.3 Personal history of irradiation; Z87.442 Personal history of urinary calculi; Z71.6 Tobacco abuse counseling; Z79.82 Long term (current) use of aspirin; Z79.899 Other long term (current) drug therapy; Z88.1 Allergy status to other antibiotic agents; Z88.8 Allergy status to other drugs, medicaments and biological substances
CPT/HCPCS: 10081

== ENCOUNTER 2019-08-22 13:32 | Inpatient (IN) | payer OTHER ==
[~2019-08-22] VITALS: Ht 157.5 cm; Wt 53.1 kg
[~2019-08-22 13:32] MED LIST changes: +ASPIR 8181 MG PO; +COREG6.25 MG PO; +COZAAR 25 MG TA25 MG PO; +NORCO 7.5-3251 EACH PO; +SPIRONOLACTONE25 M1 PO; +XARELTO15 MG PO; +XARELTO20 MG PO; +ZANAFLEX2 MG PO
[2019-08-22 13:35] VITALS: BP 105/47
[2019-08-22 15:13] LABS: ABSOLUTE NEUTROPHILS 7.5 thou/uL (1.4-8.2); BASOPHILS 0.9 % (0.0-2.0); EOSINOPHILS 2.4 % (0.0-3.0); HEMATOCRIT 30.6 % (37.0-47.0); LYMPHOCYTES 8.3 % (24.0-44.0); MCH 31.9 pg (26.0-34.0); MCHC 32.6 g/dL (28.0-37.0); MCV 97.7 fL (80.0-100.0); MONOCYTES 8.3 % (1.0-8.0); PLATELET COUNT 332 thou/uL (150-400); POLYS 80.1 % (36.0-66.0); RBC 3.13 mil/uL (4.20-5.00); RDW 14.8 % (10.5-14.5); WBC 9.4 thou/uL (4.0-11.0)
[2019-08-22 15:25] LABS: ANION GAP 8 mmol/L (7-16); BUN 27 mg/dL (7-18); CALCIUM 9.4 mg/dL (8.5-10.1); CHLORIDE 107 mmol/L (98-107); CO2 23 mmol/L (21-32); GLUCOSE 115 mg/dL (74-106); SODIUM 138 mmol/L (136-145)
[2019-08-22 15:27] LABS: POTASSIUM 6.1 mmol/L (3.5-5.1)
[2019-08-22 15:28] LABS: APTT 40.9 Seconds (24.5-32.8); INR 1.1; PROTIME 11.6 Seconds (9.3-11.4)
[2019-08-22 15:33] LABS: TROPONIN-I <0.06 ng/mL (<0.06)
[2019-08-22] MEDS ORDERED: MS CONTIN30 MG PO ×2 (16:03→16:05)
[2019-08-22 16:40] VITALS: BP 114/46
[2019-08-22 17:00] VITALS: BP 109/48
[2019-08-22 17:23] LABS: HEMATOCRIT 29.5 % (37.0-47.0); HEMOGLOBIN 9.5 gm/dL (12.0-15.0)
--- NOTE | 2019-08-22 18:49 | NUR ---
Patient arrived to 3W unit approx. 1735 from ER. Report called from BIJAL Metzger. Pts son at bedside. Admission complete besides med rec and placing SCD's on patient. Will pass on to maintenance technician 2nd shift nurse. Patient on telemetry. Fall precautions in place.
[2019-08-22 19:40] VITALS: BP 132/49
[2019-08-23 04:05] VITALS: BP 139/61
[2019-08-23 06:08] LABS: HEMATOCRIT 27.3 % (37.0-47.0); HEMOGLOBIN 8.8 gm/dL (12.0-15.0); MCH 31.8 pg (26.0-34.0); MCHC 32.1 g/dL (28.0-37.0); RBC 2.75 mil/uL (4.20-5.00); RDW 14.8 % (10.5-14.5); WBC 8.8 thou/uL (4.0-11.0)
[2019-08-23 06:20] LABS: CREATININE 0.4 mg/dL (0.6-1.0)
[2019-08-23 06:21] LABS: POTASSIUM 3.2 mmol/L (3.5-5.1)
[2019-08-23 07:10] VITALS: BP 115/53
--- NOTE | 2019-08-23 07:53 | NUR ---
ASSUMED CARE OF PT AT 1900. A&Ox4, COOPERATIVE. VS STABLE. 2 BLOODY STOOLS LAST NOC, LAST ONE AT 2200. C/O PAIN, MEDS GIVEN W/ PARTIAL RELIEF. REQUESTED SLEEP MEDICATION, MELATONIN GIVEN. PT STILL HAD DIFFICULTY SLEEPING. LABS DRAWN, POSSIBLE CONTAMINATION, RECHECKING LABS NOW. CURRENTLY READING AND RESTING. PROGRESSING TOWARDS POC GOALS.
--- NOTE | 2019-08-23 07:56 | EKG ---
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
[2019-08-23 08:03] LABS: ABSOLUTE NEUTROPHILS 5.9 thou/uL (1.4-8.2); BASOPHILS 0.5 % (0.0-2.0); EOSINOPHILS 2.7 % (0.0-3.0); HEMATOCRIT 25.6 % (37.0-47.0); HEMOGLOBIN 8.3 gm/dL (12.0-15.0); LYMPHOCYTES 11.4 % (24.0-44.0); MCH 31.9 pg (26.0-34.0); MCHC 32.5 g/dL (28.0-37.0); MCV 98.1 fL (80.0-100.0); MONOCYTES 9.5 % (1.0-8.0); PLATELET COUNT 263 thou/uL (150-400); POLYS 75.9 % (36.0-66.0); RBC 2.61 mil/uL (4.20-5.00); RDW 14.8 % (10.5-14.5); WBC 7.8 thou/uL (4.0-11.0)
[2019-08-23 08:17] LABS: ALBUMIN 2.7 g/dL (3.4-5.0); CREATININE 0.7 mg/dL (0.6-1.0); TOTAL BILIRUBIN 0.3 mg/dL (<0.1-1.0); TOTAL PROTEIN 5.7 g/dL (6.4-8.2)
[2019-08-23 08:18] LABS: APTT 29.1 Seconds (24.5-32.8); INR 1.1; PROTIME 11.1 Seconds (9.3-11.4)
[2019-08-23 08:21] LABS: POTASSIUM 6.2 mmol/L (3.5-5.1)
--- NOTE | 2019-08-23 09:56 | NUR ---
Assess due to RD consult received. Pt with hx stage IV lung CA with mets to bone. Admitted for GIB, on xarelto. Upon visit, pt did not want to discuss any nutrition history. Voiced she had lost wt, but stated "don't worry about me, I'm fine, I don't need anything." Would not quantify how much wt she had lost. Wt hx in EMR shows 25 lb wt loss over 1-2 yrs. Refuses any oral supplements. Very thin appearance with visible rib/sternal wasting observed. Has menu to order own meals once diet advanced past clears. Low nutrition risk as pt refusing any further nutrition interventions
[2019-08-23 14:58] VITALS: BP 128/40
--- NOTE | 2019-08-23 15:12 | NUR ---
ASSESSMENT: CM REVIEWED CHART AND MET WITH PT AT THE BEDSIDE. PT REPORTS SHE LIVES AT HOME WITH HER SON. PT REPORTS SHE HAS ABOUT 3 STEPS WITH HANDRAILS TO ENTER THE HOME AND ABOUT 16 STEPS WITH HANDRAILS ONCE INSIDE. PT REPORTS THAT SHE AMBULATES INDEPENDENTLY. PT STATES SHE HAS NOT HAD HH IN THE PAST NOR BEEN TO A SNF. CM DISCUSSED ROLE. PT DOES NOT ANTICIPATE HAVING ANY NEEDS AT DISCHARGE. CM WILL CONTINUE TO FOLLOW TO ASSIST NEEDED. PER ATTENDING PT IS POSSIBLE DISCHARGE THIS WEEKEND.
[2019-08-23 18:07] LABS: HEMATOCRIT 26.3 % (37.0-47.0); HEMOGLOBIN 8.6 gm/dL (12.0-15.0)
--- NOTE | 2019-08-23 18:49 | NUR ---
assumed care of pt atr 0700, pt has bee A/O times four. c/o pain to back and shoulder. pain meds administered as ordered. pt has had no stool this shift. she has been afibrile. vss.
[2019-08-23 19:45] VITALS: BP 129/53
--- NOTE | 2019-08-24 03:46 | NUR ---
ASSUMED CARE OF PT AT 1900. A&Ox4, COOPERATIVE. VS STABLE. NO BLOODY STOOLS SO FAR THIS SHIFT. C/O PAIN SEVERAL TIMES, MEDS GIVEN DOCUMENTED. UP TO BR WITH SBA. NO ACUTE DISTRESS OR CHANGES. PROGRESSING TOWARDS POC GOALS.
[2019-08-24 04:20] VITALS: BP 121/51
[2019-08-24 06:03] LABS: HEMATOCRIT 25.1 % (37.0-47.0); MCH 31.5 pg (26.0-34.0); MCHC 31.7 g/dL (28.0-37.0); MCV 99.4 fL (80.0-100.0); RBC 2.53 mil/uL (4.20-5.00); WBC 7.2 thou/uL (4.0-11.0)
[2019-08-24 06:05] LABS: CALCIUM 8.3 mg/dL (8.5-10.1); CREATININE 0.8 mg/dL (0.6-1.0); POTASSIUM 5.3 mmol/L (3.5-5.1)
[2019-08-24 07:24] VITALS: BP 140/51
--- NOTE | 2019-08-24 08:49 | NUR ---
ASSUMED CARE OF PT APPROX 0715, AMB STEADY AND SLOWLY, IVF D/C'D, C/O PAIN AND DISCOMFORT OF BED AND ANXIOUS TO COME HOME, SEE SEPARATE INTERVENTIONS FOR ASSESSMENT. CARDIAC MONITORED. ASKED FOR FIBER WE ARE WAITING FOR A BM, PT DECLINES ONE ORDERED STATES SHE USES [employer] HOME AND OATMEAL. WILL GIVE PRUNE JUICE THIS AM. ENCOURAGED PT TO USE CALL LIGHT FOR ANY NEEDS
[2019-08-24 13:26] VITALS: BP 140/51
--- NOTE | 2019-08-24 13:59 | NUR ---
PT WAS IRATE THIS A.M. RE: WANTING TO BE D/C'D IMMEIDATELY AFTER PHYSICIAN'S VISIT. DR. MOLINA EXPLAINED GI NEEDED TO SEE HER. GI SAW PT, NO ORDERS ENTERED, CALLED DR. MOLINA AND HE OBLIGED. SHE'S READY TO GO; TELE AND PORTACATH HEP LOCKED, REMOVED, CLEANED AND BANDAGED. SHE HAS SEVERAL QUESTIONS CONCERNING HER 'STOP MEDICATION' LIST. PLACED ANOTHER CALL TO PHYSICIAN FOR EXPLANATION FOR HER COMFORT AND ALSO ENCOURAGED HER TO FOLLOW UP WITH FAMILY PHYSICIAN WELL.
--- NOTE | 2019-08-24 14:05 | NUR ---
PHYSICIAN WANTS PT TO CONTINUE TAKING THE COREG, WROTE IT OUT ON THE D/C PAPERWORK
--- NOTE | 2019-08-26 07:31 | HC ---
[facility] [place] [address] CONSULTATION Name: MANUELA CANALES Room #: 353-P [facility] IN M.R.#: [id number] Admission: 08/22/19 Attend Phys: Delmer Holloway MD Discharge: 08/24/19 Date of : 47 Report #: [id number] THIS REPORT FOR: //name// CC: Delmer Rivas MD DATE OF SERVICE: 08/23/2019 REASON FOR CONSULTATION: Bright red blood per rectum while on Xarelto for bilateral pulmonary emboli and right popliteal DVT from 11/2018. REQUESTED BY: Dr. Delmer Holloway. HISTORY OF PRESENT ILLNESS: The patient is a very pleasant 73-year-old female who I follow with a history of stage IV non-small cell lung cancer, who had called the office yesterday reporting bright red blood, beginning about 10:00 in the morning on 08/22/2019. She describes stool mixed with quite a bit of blood. This happened several times during the day. She had not been straining. She has not had any change in her diet. She has not been constipated. She has not had any new cramping. She has not had any viral or gastroenteritis type illnesses. She has been taking her Xarelto like normal. Had not changed any of her other medications and a slight bump up in her MS Contin several days previous to that. She came to the ER, was evaluated, note per nursing her last bowel movement that had stool and was about 10:00 or 2200 on 08/22/2019. Note that she has also not had bowel movements since that time. In the ER, her vitals were stable. Her hemoglobin was approximately 10, platelets about 332. At this time, the patient denies headache, vision troubles, mouth sores, swallowing difficulties. Does have some right neck discomfort from radiation therapy to the tumor in her right clavicle and neck. Does have some occasional cough, no worse than usual, not productive, not spitting up any blood. No unusual nausea or vomiting. No abdominal pain, no constipation, no dysuria. No new arm or leg swelling. Does have some of her back pain related to her cancer. PAST MEDICAL HISTORY: Notable for the history of the non-small cell lung cancer stage 4. This was originally diagnosed in February and March of 2017. This is an invasive moderately differentiated adenocarcinoma that was ALK negative, ROS negative, EGFR negative and PD-L1 expression was less than 1%. The patient began chemotherapy with Keytruda, carboplatin, Alimta about 05/29/2017. The patient developed nephritis later and we decided to avoid pemetrexed and Keytruda due to possible nephritis. The patient had radiation therapy to her [facility] [address] [place] [address] CONSULTATION Name: MANUELA CANALES Room #: 353-P DIS IN M.R.#: [id number] Admission: 08/22/19 Attend Phys: Delmer Holloway MD Discharge: 08/24/19 Date of : 47 Report #: [id number] left hip and right clavicle in 10/2018. She has really had no active therapy since that time. Her most recent scan was on 08/01/2019 that showed no significant change in size of hypermetabolic activity in the right upper lobe mass, stable multifocal sher and osseous metastatic disease and also hypermetabolic focus in the sella turcica likely represented an incidental pituitary adenoma. The patient also has a history of acute pulmonary emboli from an admission at [place] 11/28/2018. There are large bilateral pulmonary emboli, especially on the left main pulmonary emboli. There was also found to be an occlusive thrombus throughout the right popliteal vein. Right femoral vein was compressible. The patient has been on Xarelto until that time and has been held since last night. Also, history of herpes zoster/shingles right lower leg in May 2019. She also has a history of several skin cancers, in the past has had a history of bone metastasis, history of hypertension, hyperlipidemia, tobacco use in the past, polymyalgia rheumatica, atherosclerosis, cataracts in the past. SOCIAL HISTORY: [place] is [place], [place] I think she has children in town. PHYSICAL EXAMINATION: GENERAL: The patient appears his stated age. VITAL SIGNS: Height is 5 feet 2, 157.5 cm, weight 117 pounds, 53.07 kilograms. Blood pressure is 115/53, O2 sat 96%, respirations 20, pulse 56, temperature 98.3. MOOD: She is very pleasant and conversant. NEUROLOGIC: Face is symmetrical, moving extremities. LYMPHATICS: No enlarged lymph nodes in the supraclavicular, cervical, axillary or inguinal region, in the right medial clavicle neck area, there is an area of fullness and thickness. We have been watching it. It is less red than it was several weeks ago, but there was some thickening of the skin that we are monitoring. LUNGS: Mostly clear, though occasional soft rhonchi. HEART: Appears to be regular rate. ABDOMEN: Soft, no masses. EXTREMITIES: Without clubbing or cyanosis. LABORATORY DATA: Here notable on admit for the sodium 138, potassium 6.1, BUN 27, creatinine 1.15, calcium 9.4, INR 1.1, protime 11.6, APTT 40.9, white count 9.4, hemoglobin 10 on admit. Platelets 332 on admit. Differential, slight left shift. RADIOLOGIC STUDIES: Include a GI bleeding scan done last night that did not show any scintigraphic evidence of active GI bleeding. MEDICATIONS: Currently in the hospital include MS Contin 60 in the morning, 30 at night, melatonin 5 mg at bedtime p.r.n., morphine IV p.r.n., hydrocodone [address] [address] CONSULTATION Name: MANUELA CANALES Room #: 353-P [facility] IN M.R.#: [id number] Admission: 08/22/19 Attend Phys: Delmer Holloway MD Discharge: 08/24/19 Date of : 47 Report #: [id number] p.r.n., Zofran p.r.n. ASSESSMENT AND PLAN: 1. Hematochezia, on Xarelto, last blood in the stool was about 10:00 or 2200 on 08/22/2019. We will wait to see if the patient has additional bleeding with stooling. Await GI input. I believe they were consulted. We will continue following serial hemoglobins. Earliest labs this morning may have been contaminated. We will look for redraw availability, which should be here soon. 2. History of pulmonary embolism in 11/2018 with bilateral pulmonary emboli and right popliteal deep venous thrombosis, holding Xarelto at this time, may consider watching several days of therapy and if no bleeding, could consider initiation of lower prophylactic dose 10 mg daily and then either might escalate after a week if no bleeding or leave on this dose. The patient is at risk for progression of past blood clots and popliteal deep venous thrombosis. 3. Bone pain. Continue MS Contin 60 in a.m. and 30 in p.m. and p.r.n. hydrocodone. 4. Anemia, following serial lab. 5. Electrolytes and calcium. Await redrawn. 6. History of non-small cell lung cancer, not on any current active therapy. May consider radiation therapy, if progressive disease. 7. Shingles in the right lower leg, not currently an issue. 8. History of pituitary adenoma. Continue monitoring. 9. Hypertension. Medications per others. 10. Hyperlipidemia. Medications per others. 11. History of polymyalgia rheumatica, per others. We will follow. <ELECTRONICALLY SIGNED> By: Cornelius Cunningham MD 08/26/19 0731 [id number] Cornelius Cunningham MD /nt
--- NOTE | 2019-08-28 08:11 | HC ---
[facility] [place] [address] CONSULTATION Name: MANUELA CANALES Room #: 353-P [facility] IN M.R.#: [id number] Admission: 08/22/19 Attend Phys: Delmer Holloway MD Discharge: 08/24/19 Date of : 47 Report #: [id number] THIS REPORT FOR: //name// CC: Delmer Cunningham MD DATE OF SERVICE: 08/23/2019 HISTORY OF PRESENT ILLNESS: The patient is a 73-year-old female with new onset hematochezia yesterday. She had several episodes of bright red blood with clots. This was not associated with abdominal pain. No fevers or chills. No diarrhea or constipation recently. The patient has undergone 2 colonoscopies by myself in the past; the most recent one was in 2010. She was noted to have small ulcers near her ileocecal valve, which is also consistent with previous colonoscopy. There was no evidence of bleeding. She had a left-sided diverticulosis. She also had narrowing in the sigmoid colon, likely from previous episode of diverticulitis. Hemorrhoids were also noted, nonbleeding at that time. She also had a colonoscopy in 2005, again showing similar findings. The patient does have unfortunately a history of metastatic lung cancer. She is undergoing chemotherapy and then later radiation therapy, both to the spine and clavicle. She is followed by Dr. Cornelius McKittrick. The patient's hemoglobin on admission was 10.0, today it is 8.3. The patient underwent a bleeding scan yesterday on admission, which was negative for any signs of active bleeding. Today, she has not had any further bowel movements. She remains on clear liquids at this time. She denies any chest pain or shortness of breath currently. PAST MEDICAL HISTORY: Metastatic lung cancer, history of diverticulosis, history of pulmonary emboli, hypertension, peripheral vascular disease, previous hysterectomy, bilateral fem-pop with stenting. MEDICATIONS ON ADMISSION: Xarelto, Cozaar, [place], Aldactone, folic acid, Zofran p.r.n., MS Contin. ALLERGIES: HYDROCORTISONE and CLINDAMYCIN. FAMILY HISTORY: Negative for colon cancer. SOCIAL HISTORY: Long history of smoking. She denies any alcohol use. REVIEW OF SYSTEMS: As per HPI. PHYSICAL EXAMINATION: VITAL SIGNS: Temperature is 98.8, pulse 69, blood pressure 128/40, respiratory [facility] [address] [place] [address] CONSULTATION Name: MANUELA CANALES Room #: 353-P DIS IN .R.#: [id number] Admission: 08/22/19 Attend Phys: Delmer Holloway MD Discharge: 08/24/19 Date of : 47 Report #: [id number] rate is 16. GENERAL: She is alert and oriented x 3, in no acute distress. HEENT: Sclerae nonicteric. Oropharynx clear. NECK: Supple, without lymphadenopathy. CARDIOVASCULAR: Regular rate. CHEST: With mild decreased breath sounds bilaterally. ABDOMEN: Soft, nontender, nondistended, normoactive bowel sounds. EXTREMITIES: No cyanosis, clubbing or edema. LABORATORY DATA: Sodium 140, potassium 6.2, chloride 110, bicarbonate 22, BUN 22, creatinine 0.7, AST 6, total bilirubin 0.3, calcium 8.0, magnesium 2.1, alkaline phosphatase 91, ALT 8, total protein 5.7, albumin 2.7. Troponin less than 0.06. INR 1.1. WBC 7.8, hemoglobin 8.3, platelet count 263. ASSESSMENT AND PLAN: Hematochezia, suspect possible diverticular bleed as the patient has no history of abdominal pain, diarrhea or constipation recently. She was noted to have left-sided diverticulosis on previous colonoscopies. Bleeding scan has been negative. She did have a drop in her hemoglobin. No further bleeding or bowel movements today. I had a long discussion with the patient and her son today on options. If the patient rebleeds, we could potentially repeat nuclear medicine scan with delayed images. We could consider proceeding with colonoscopy, but I explained to the patient, she has been on Xarelto. She also has a tight strictured area in the sigmoid colon, which makes it more difficult. The plan at this time is to observe. We will advance her diet. Repeat hemoglobin in the morning. Continue to hold Xarelto at this time. Thank you for allowing me to participate in her care. <ELECTRONICALLY SIGNED> By: Broderick Jones MD 08/28/19 0811 [id number] Broderick Jones MD /nt
== END 2019-08-24 14:33 | disposition home or self-care (01) | DRG 377 ==
LOC: ER 13:32 → EROBS 16:28 → 3W 16:28
PROVIDERS: Emergency Medicine; Internal Medicine Hematology & Oncology; ADMIT Hospitalist
DX: K57.31 Diverticulosis of large intestine without perforation or abscess with bleeding (principal); E43 Unspecified severe protein-calorie malnutrition; D62 Acute posthemorrhagic anemia; E87.5 Hyperkalemia; I73.9 Peripheral vascular disease, unspecified; E78.5 Hyperlipidemia, unspecified; N18.9 Chronic kidney disease, unspecified; Z85.118 Personal history of other malignant neoplasm of bronchus and lung; B02.9 Zoster without complications; I12.9 Hypertensive chronic kidney disease with stage 1 through stage 4 chronic kidney disease, or unspecified chronic kidney disease; F17.210 Nicotine dependence, cigarettes, uncomplicated; G89.29 Other chronic pain; Z87.442 Personal history of urinary calculi; Z90.710 Acquired absence of both cervix and uterus; Z88.1 Allergy status to other antibiotic agents; Z88.8 Allergy status to other drugs, medicaments and biological substances; Z86.711 Personal history of pulmonary embolism; Z86.718 Personal history of other venous thrombosis and embolism; Z79.01 Long term (current) use of anticoagulants; Z68.21 Body mass index [BMI] 21.0-21.9, adult
CPT/HCPCS: 10879

== ENCOUNTER 2019-08-26 11:30 | Inpatient (IN) | payer OTHER ==
[~2019-08-26] VITALS: Ht 157.5 cm; Wt 51.7 kg
[2019-08-26 11:30] VITALS: BP 122/37; BP 126/53
[~2019-08-26 11:30] MED LIST changes: +MS CONTIN30 MG PO
[2019-08-26 12:11] LABS: URINE BILIRUBIN NEGATIVE (Negative); URINE BLOOD NEGATIVE (Negative); URINE CLARITY CLEAR; URINE COLOR YELLOW; URINE GLUCOSE-RANDOM* NEGATIVE (Negative); URINE KETONES TRACE (Negative); URINE LEUKOCYTES-REFLEX NEGATIVE (Negative); URINE NITRITE-REFLEX NEGATIVE (Negative); URINE PROTEIN (DIPSTICK) TRACE (Negative); URINE SPECIFIC GRAVITY 1.025 (1.005-1.035); URINE UROBILINOGEN 0.2 E.U./dl (0.2-1.0)
[2019-08-26 12:41] LABS: ABSOLUTE NEUTROPHILS 6.8 thou/uL (1.4-8.2); BASOPHILS 0.8 % (0.0-2.0); EOSINOPHILS 1.7 % (0.0-3.0); HEMATOCRIT 26.5 % (37.0-47.0); HEMOGLOBIN 8.6 gm/dL (12.0-15.0); LYMPHOCYTES 9.7 % (24.0-44.0); MCHC 32.5 g/dL (28.0-37.0); MCV 98.5 fL (80.0-100.0); MONOCYTES 6.3 % (1.0-8.0); PLATELET COUNT 306 thou/uL (150-400); POLYS 81.5 % (36.0-66.0); RBC 2.69 mil/uL (4.20-5.00); RDW 15.1 % (10.5-14.5); WBC 8.3 thou/uL (4.0-11.0)
[2019-08-26 12:52] LABS: CALCIUM 9.4 mg/dL (8.5-10.1); CREATININE 0.8 mg/dL (0.6-1.0); POTASSIUM 5.1 mmol/L (3.5-5.1)
[2019-08-26 12:55] LABS: INR 1.2
[2019-08-26 12:58] LABS: ALBUMIN 3.1 g/dL (3.4-5.0); TOTAL BILIRUBIN 0.2 mg/dL (<0.1-1.0); TOTAL PROTEIN 7.3 g/dL (6.4-8.2)
[2019-08-26 14:28] VITALS: BP 126/53
[2019-08-26 16:11] LABS: HEMATOCRIT 25.2 % (37.0-47.0); HEMOGLOBIN 8.1 gm/dL (12.0-15.0)
[2019-08-26 16:15] VITALS: BP 139/66
[2019-08-26] MEDS ORDERED: CARVEDILOL12.5 MG PO (17:08)
[2019-08-26 17:32] LABS: ALBUMIN 3.2 g/dL (3.4-5.0); TOTAL PROTEIN 6.7 g/dL (6.4-8.2)
[2019-08-26 17:45] LABS: % SATURATION 10 % (20-39); IRON 24 ug/dL (50-170); TIBC 239 ug/dL (250-450)
[2019-08-26 18:15] LABS: TSH 2.435 uIU/mL (0.358-3.740)
--- NOTE | 2019-08-26 18:51 | NUR ---
NEW ADMIT FROM ED FOR RECTAL BLEEDING. ALERT X4, FROM HOME WITH SON, PAIN MANAGED WITH MEDCATIONS, STEADY GAIT. STARTED COLONSCOPY PREP AT 1830, ADMISSION ASSESMENT AND HISTORY COMPLETED. SONS ARE BEDSIDE AT THIS TIME. CALL LIGHT IN REACH. NSR ON TELE. CLEAR LIQUID DIET UNTIL MIDNIGHT THEN NPO FOR COLONONSCOPY TOMORROW.
[2019-08-26 20:04] VITALS: BP 133/59
[2019-08-27] VITALS: BP 141/68
[2019-08-27 00:28] LABS: HEMATOCRIT 24.2 % (37.0-47.0)
[2019-08-27 04:00] VITALS: BP 142/72
--- NOTE | 2019-08-27 06:08 | NUR ---
ASSESSMENT DOCUMENTED.PT BEEN RESTING IN NO ACUTE DISTRESS.BOWEL PREP WAS COMPLETED ALTHOUGH PT LEFT APPROXIMATELY 120CC OF MIXED LIQUID WITH MILARAX.PT BEEN PASSING BRIGHT RED STOOLS LIQUID AT FIRST WITH LOTS OF CLOTS BUT TOWARS THE END WAS RED LIQUID.PT EXHAUSTED AND WITHOUT ENERGY,SEEMS VERY LETHARGIC.NPO AFTER MIDNOC.NS AT 100ML/HR.PAIN MANAGED WITH SCHEDULED AND PRN MEDS ALONG WITH RELAXATION AND REPOSITIONING.VSS.H&H Q8H.PT TO COLONOSCOPY DONE TODAY.WILL CONT TO MONITOR PER POC.
[2019-08-27 07:33] VITALS: BP 167/78
[2019-08-27 08:20] LABS: HEMATOCRIT 23.4 % (37.0-47.0); HEMOGLOBIN 7.6 gm/dL (12.0-15.0)
[2019-08-27 09:01] LABS: CALCIUM 8.7 mg/dL (8.5-10.1); CREATININE 0.6 mg/dL (0.6-1.0); MAGNESIUM 1.6 mg/dL (1.8-2.4); POTASSIUM 4.6 mmol/L (3.5-5.1)
[2019-08-27] MEDS ORDERED: SPIRONOLACTONE25 MG PO (10:00)
--- NOTE | 2019-08-27 10:38 | NUR ---
ASSUMED CARE AT 0700, SHIFT ASSESSMENT DONE, MEDS GIVEN, VSS. NPO SINCE LAST NIGHT. REPORTED PAIN, PRN PAIN MEDS GIVEN. LEFT FOR COLONOSCOPY THIS AM. NSR, ROOM AIR. WILL CONTINUE TO ASSESS AND ASSIST WITH ADLs NEEDED.
--- NOTE | 2019-08-27 15:08 | NUR ---
Nutrition: pt admitted with rectal bleeding on xarelto which is now D/C'ed. Nsg assessment indicated poor intake, weight loss. Pt with hx of stage 4 lung CA with mets. Pt was seen by RD on 08/23 and pt did not want to speak with RD stating "Im fine, I dont need anything". Today, neither son or pt wished to speak with RD or answer questions. Pt is wanting to sleep. Recent visit pt refused supplements. S/P colonoscopy which showed diverticulosis and internal hemorrhoids. Diet advanced to regular. EMR shows 25# weight loss over 1-2 years and pt with thin appearance/upper body wasting. RD will attempt followup within 24-48 hrs as pt allows.
[2019-08-27 16:38] VITALS: BP 173/79
[2019-08-27 20:00] VITALS: BP 134/37
[2019-08-27 23:27] VITALS: BP 137/54
[2019-08-28 04:30] VITALS: BP 126/54
--- NOTE | 2019-08-28 04:59 | NUR ---
ASSUMED PT CARE AT 1900. PT A/OX4, ASSESSMENT CHARTED, VITAL SIGNS STABLE. ZOFRAN GIVEN FOR NAUSEA WHICH SEEMED TO HELP. PAIN ADEQAUTELY MANAGED WITH PAIN MEDICATION. NO BLOODY STOOLS NOTED THIS SHIFT. RESTED WELL THROUGH THE THE NIGHT. PROGRESSING TIWAD PLNAN OF CARE, WILL CONTINUE TO MONITOR.
[2019-08-28 05:13] LABS: HEMATOCRIT 22.6 % (37.0-47.0); HEMOGLOBIN 7.2 gm/dL (12.0-15.0); MCH 31.7 pg (26.0-34.0); MCHC 32.1 g/dL (28.0-37.0); MCV 98.9 fL (80.0-100.0); RBC 2.28 mil/uL (4.20-5.00); RDW 15.2 % (10.5-14.5); WBC 7.7 thou/uL (4.0-11.0)
[2019-08-28 05:25] LABS: CALCIUM 8.2 mg/dL (8.5-10.1); CREATININE 0.7 mg/dL (0.6-1.0); MAGNESIUM 2.4 mg/dL (1.8-2.4); POTASSIUM 4.2 mmol/L (3.5-5.1)
[2019-08-28 07:18] VITALS: BP 127/49
--- NOTE | 2019-08-28 08:45 | NUR ---
ASSUMED CARE OF PT APPROX 0715, A&0X4, SLOW AND STEADY GAIT, SON PRESENT, DISCHARGE BEING DISCUSSED. PT READY FOR D/C. SEE SEPARATE INTERVENTIONS FOR ASSESSMENTS. CARDIAC MONITORED. GROIN SITE SOFT, NO DRAINAGE, CDI. WANTS BANDAGE REMOVED BEFORE DISCHARGE. PT APPEARS IN GOOD SPIRITS
--- NOTE | 2019-08-28 11:40 | NUR ---
DIETARY SUPPLEMENT: ORDERED YET NO DETAILS, CALLED DIETARY AND THEY SHOWN NOTHING ON THEIR END; PT'S D/C IS PENDING
[2019-08-28] MEDS ORDERED: CARVEDILOL6.25 M1 PO (12:15)
[2019-08-28 12:40] VITALS: BP 127/49
[2019-08-28 13:17] VITALS: BP 127/49
== END 2019-08-28 13:55 | disposition home or self-care (01) | DRG 356 ==
LOC: ER 11:30 → 2N 14:09 → EROBS 14:09 → 2N 16:31 → ENTRNSPT 08-28 13:27 → EDTRNSPTSTS 08-28 13:31 → 2N 08-28 13:55
PROVIDERS: Nurse Practitioner; Physician Assistant; ADMIT Internal Medicine
PROC: 0DJD8ZZ Inspection of Lower Intestinal Tract, Via Natural or Artificial Opening Endoscopic (ICD-10-PCS; principal; 2019-08-27)
PROC: B5191ZZ Fluoroscopy of Inferior Vena Cava using Low Osmolar Contrast (ICD-10-PCS; principal; 2019-08-27)
PROC: 06H03DZ Insertion of Intraluminal Device into Inferior Vena Cava, Percutaneous Approach (ICD-10-PCS; 2019-08-27)
DX: K57.31 Diverticulosis of large intestine without perforation or abscess with bleeding (principal); E43 Unspecified severe protein-calorie malnutrition; D62 Acute posthemorrhagic anemia; N18.9 Chronic kidney disease, unspecified; E78.5 Hyperlipidemia, unspecified; I73.9 Peripheral vascular disease, unspecified; F17.210 Nicotine dependence, cigarettes, uncomplicated; K64.8 Other hemorrhoids; I12.9 Hypertensive chronic kidney disease with stage 1 through stage 4 chronic kidney disease, or unspecified chronic kidney disease; Z85.118 Personal history of other malignant neoplasm of bronchus and lung; Z87.442 Personal history of urinary calculi; Z90.710 Acquired absence of both cervix and uterus; Z88.1 Allergy status to other antibiotic agents; Z88.8 Allergy status to other drugs, medicaments and biological substances; Z79.01 Long term (current) use of anticoagulants; Z86.711 Personal history of pulmonary embolism; Z86.718 Personal history of other venous thrombosis and embolism; Z79.899 Other long term (current) drug therapy
CPT/HCPCS: 10081; 62110; 62900; 70005